=== PATIENT | female | born 1970 | race Caucasian/White ===

== ENCOUNTER 2017-03-06 23:02 | Emergency (ER) | payer BC ==
[2017-03-06] MEDS ORDERED: Adacel (T-DAP) 0.5 ML VIAL ONE (23:09)
[2017-03-06] MEDS ORDERED: Bacitracin Zinc 1 Packet ONE (23:18)
== END 2017-03-06 23:28 | disposition home or self-care (01) ==
LOC: SCSER 23:02
DX: S80.02XA Contusion of left knee, initial encounter (principal); S60.811A Abrasion of right wrist, initial encounter; F41.9 Anxiety disorder, unspecified; Z79.899 Other long term (current) drug therapy; W01.10XA Fall on same level from slipping, tripping and stumbling with subsequent striking against unspecified object, initial encounter
CPT/HCPCS: 90471; 90715

== ENCOUNTER 2019-12-04 10:26 | Outpatient (CLI) | payer BC ==
--- NOTE | 2019-12-04 11:28 | BD ---
EXAM: Bone densitometry using DEXA HISTORY: 49 yo female. Screening for osteoporosis FINDINGS: L1--bone mineral density 1.022 g/sq cm; T score 0.3 ; Z score 1.0 L2--bone mineral density 1.073 g/sq cm; T score 0.4 ; Z score 1.2 L3--bone mineral density 1.142 g/sq cm; T score 0.5 ; Z score 1.3 L4--bone mineral density 1.169 g/sq cm; T score 1.0 ; Z score 1.8 Total L1-L4--bone mineral density 1.106 g/sq cm; T score 0.5 ; Z score 1.3 Left femoral neck--bone mineral density0.697; T score -1.4 ; Z score -0.6 Total proximal left femur--bone mineral density 0.987; T score 0.4 ; Z score 0.9 The 10 year fracture risk for a major osteoporotic fracture is 4.3% and for a hip fracture is 0.3%. IMPRESSION: Osteopenia
--- NOTE | 2019-12-04 14:06 | MMO ---
Bilateral MAMMO Bilat Screen [facility]. CLINICAL HISTORY: Patient is 49 years old and is seen for screening. The patient has the following family history of breast cancer: maternal aunt, at age 83. The patient has no personal history of cancer. VIEWS: The views performed were: bilateral craniocaudal with tomosynthesis; bilateral mediolateral oblique with tomosynthesis; and bilateral exaggerated craniocaudal. FILMS COMPARED: The present examination has been compared to prior imaging studies performed at [facility] on 01/19/2007, 11/10/2009, 11/11/2010 and 11/22/2011. This study has been interpreted with the assistance of computer-aided detection. MAMMOGRAM FINDINGS: There are scattered fibroglandular densities. There are no suspicious masses, suspicious calcifications, or new areas of architectural distortion. IMPRESSION: THERE IS NO MAMMOGRAPHIC EVIDENCE OF MALIGNANCY. A ROUTINE FOLLOW-UP MAMMOGRAM IN 1 YEAR IS RECOMMENDED. THE RESULTS OF THIS EXAM WERE SENT TO THE PATIENT. ACR BI-RADS Category 1 - Negative MAMMOGRAPHY NOTE: 1. A negative mammogram report should not delay a biopsy if a dominant of clinically suspicious mass is present. 2. Approximately 10% to 15% of breast cancers are not detected by mammography. 3. Adenosis and dense breasts may obscure an underlying neoplasm. Reported by: SAMANTHA HONG MD Electonically Signed: [id number]
== END 2019-12-04 10:27 | disposition home or self-care (01) ==
LOC: BICMAMMO 10:26
PROVIDERS: ATTEND Nurse Practitioner Family
DX: Z12.31 Encounter for screening mammogram for malignant neoplasm of breast (principal); Z13.820 Encounter for screening for osteoporosis; M81.0 Age-related osteoporosis without current pathological fracture; M85.852 Other specified disorders of bone density and structure, left thigh; Z79.890 Hormone replacement therapy; Z80.3 Family history of malignant neoplasm of breast
CPT/HCPCS: 77063; 77067; 77080

== ENCOUNTER 2020-10-27 08:17 | Outpatient (CLI) | payer BC | END 2020-10-27 08:18 | disposition home or self-care (01) | LOC: DTY/OP 08:17 | PROVIDERS: ATTEND Surgery | DX: E66.01 Morbid (severe) obesity due to excess calories (principal); Z68.39 Body mass index [BMI] 39.0-39.9, adult | CPT/HCPCS: 97802 ==

== ENCOUNTER 2020-11-05 08:48 | Outpatient (CLI) | payer BC | END 2020-11-05 08:49 | disposition home or self-care (01) | LOC: BICRAD 08:48 | PROVIDERS: ATTEND Family Medicine | DX: J20.9 Acute bronchitis, unspecified (principal) | CPT/HCPCS: 71046 ==

== ENCOUNTER 2020-11-12 11:30 | Inpatient (IN) | payer OTHER ==
[2020-11-12 15:20] VITALS: BMI 38.7
[2020-11-17] MEDS ORDERED: Heparin 5,000 UNITS/ML VIAL ONE (07:30)
[2020-11-17] MEDS ORDERED: Scopolamine 1.5 mg/72 hour Patch ONE (07:44)
[2020-11-17] MEDS ORDERED: Bupivacaine 0.25% HCL 30 ML VIAL ONE (09:12)
[2020-11-17] MEDS ORDERED: Lidocaine 1% w/Epinephrine 1:100K 20 ML VIAL ONE (09:12)
[2020-11-17] MEDS ORDERED: Fentanyl 250 MCG/5 ML VIAL ONE (09:16)
[2020-11-17] MEDS ORDERED: Rocuronium Bromide 10 MG/ML (10ML VIAL) ONE (09:40)
[2020-11-17] MEDS ORDERED: Ondansetron PF 4 MG/2 ML Vial ONE (09:40)
[2020-11-17] MEDS ORDERED: PROPOFOL 200 MG/20 ML VIAL ONE (09:40)
[2020-11-17] MEDS ORDERED: Glycopyrrolate 0.2 MG/ML 5 ML SYRINGE ONE (09:40)
[2020-11-17] MEDS ORDERED: ePHEDrine Sulfate 50 MG/10 ML VIAL ONE (09:40)
[2020-11-17] MEDS ORDERED: Lidocaine 1% PF 5 ML VIAL ONE (09:40)
[2020-11-17] MEDS ORDERED: Ketorolac Tromethamine 30 MG/ML VIAL ONE (09:40)
[2020-11-17] MEDS ORDERED: Dexamethasone 20 MG/5 ML VIAL ONE (09:40)
[2020-11-17] MEDS ORDERED: Promethazine HCl 25 MG/ML VIAL IVPB PRN (10:22)
[2020-11-17] MEDS ORDERED: Meperidine HCl/PF 25 MG/ML VIAL SLOW IVP PRN (10:22)
[2020-11-17] MEDS ORDERED: Ondansetron HCl/PF 4 MG/2 ML Vial IVP PRN (10:22)
[2020-11-17] MEDS ORDERED: Promethazine HCl 25 MG/ML VIAL IM PRN ×3 (10:22→12:20)
[2020-11-17] MEDS ORDERED: Naloxone HCl 0.4 mg/ml Vial IV PRN (11:21)
[2020-11-17] MEDS ORDERED: fentaNYL Citrate/PF 2,000 MCG in Sodium Chloride 0.9% 60 ML IV PRN (11:21)
[2020-11-17] MEDS ORDERED: diphenhydrAMINE 50 MG/ML VIAL IVP PRN ×2 (11:21→12:20)
[2020-11-17] MEDS ORDERED: Zolpidem Tartrate 5 MG TAB PO PRN (11:21)
[2020-11-17] MEDS ORDERED: diphenhydrAMINE 25 MG CAP PO PRN (11:21)
[2020-11-17] MEDS ORDERED: Ondansetron PF 4 MG/2 ML Vial IVP PRN ×2 (11:21→12:20)
[2020-11-17] MEDS ORDERED: diphenhydrAMINE 50 MG/ML VIAL IM PRN (11:21)
[2020-11-17] MEDS ORDERED: Fentanyl 100 MCG/2 ML VIAL ONE (11:27)
[2020-11-17] MEDS ORDERED: Communication Order-Pharmacy FS SCH (11:30)
[2020-11-17] MEDS ORDERED: Hydrocodone-Acetamin 15 ML UDCUP PO PRN (12:20)
[2020-11-17] MEDS ORDERED: Dextrose 5% in Water 1,000 ML IV PRN (12:20)
[2020-11-17] MEDS ORDERED: Dextrose 50% Abboject 50 ML SYRINGE SLOW IVP PRN (12:20)
[2020-11-17] MEDS ORDERED: hydrALAZINE 20 MG/ML VIAL SLOW IVP PRN (12:20)
[2020-11-17] MEDS: D5 1/2 NS w/20 mEq KCL 1,000 ML IV SCH ×2 (20:44→20:45)
[2020-11-18] MEDS: D5 1/2 NS w/20 mEq KCL 1,000 ML IV SCH (02:22)
[2020-11-18 06:00] LABS: #Lymphocytes 2.7 thou/uL (1.20-3.40); #Monocytes 0.8 thou/uL (0.11-0.59); #Neutrophils 6.8 thou/uL (1.40-6.50); %Basophils 0.4 % (0.0-1.0); %Eosinophils 0.3 % (0.0-10.0); %Lymphocytes 26.1 % (21.0-51.0); %Monocytes 7.9 % (0.0-10.0); %Neutrophils 65.4 % (42.0-75.0); Hemoglobin 12.3 g/dL (12.0-16.0); Mean Corpuscular HGB CONC 33.1 g/dL (32.0-36.0); Mean Corpuscular Hemoglobin 28.6 pg (27.0-31.0); Mean Corpuscular Volume 86.5 fL (78.0-98.0); Mean Platelet Volume 10.1 fL (7.4-10.4); Platelet Count 244 thou/uL (130-400); RBC Distribution Width 12.7 % (11.5-14.5); White Blood Cell (WBC) Count 10.4 thou/uL (4.8-10.8)
[2020-11-18 06:18] LABS: Anion Gap 15 mmol/L (10-20); BUN (Urea Nitrogen) 9 mg/dL (9.8-20.1); Calc. Creatinine Clearance 118 mL/min (70-130); Calcium 8.6 mg/dL (7.8-10.44); Carbon Dioxide 23 mmol/L (22-29); Chloride 102 mmol/L (98-107); Glucose 112 mg/dL (70-105); Potassium 3.9 mmol/L (3.5-5.1); Sodium 136 mmol/L (136-145)
[2020-11-18] MEDS ORDERED: Loratadine 10 MG TAB PO SCH (09:00)
[2020-11-18] MEDS ORDERED: Enoxaparin Sodium 40 MG/0.4 ML SYRINGE SC SCH (09:00)
[2020-11-18] MEDS ORDERED: Pantoprazole 40 MG VIAL IVP SCH (09:00)
[2020-11-18 11:34] VITALS: TEMP 98.6
[2020-11-18 11:37] VITALS: BP 110/72
== END 2020-11-18 13:48 | disposition home or self-care (01) | DRG 621 ==
LOC: SURG A 11-17 07:03 → SURG B 11-17 13:59
PROVIDERS: ADMIT Surgery; ATTEND Surgery
PROC: 0DB64Z3 Excision of Stomach, Percutaneous Endoscopic Approach, Vertical (ICD-10-PCS; principal; 2020-11-17)
PROC: 8E0W4CZ Robotic Assisted Procedure of Trunk Region, Percutaneous Endoscopic Approach (ICD-10-PCS; 2020-11-17)
PROC: 0DJ08ZZ Inspection of Upper Intestinal Tract, Via Natural or Artificial Opening Endoscopic (ICD-10-PCS; 2020-11-17)
DX: E66.01 Morbid (severe) obesity due to excess calories (principal); F41.9 Anxiety disorder, unspecified; F90.9 Attention-deficit hyperactivity disorder, unspecified type; Z68.39 Body mass index [BMI] 39.0-39.9, adult; Z79.899 Other long term (current) drug therapy
CPT/HCPCS: 36415; 80048; 85025; 88307; C9113; J0690; J1100; J1644; J1650; J1885; J2405; J2704; J3010; J3480; S0020

== ENCOUNTER 2020-12-04 08:35 | Outpatient (CLI) | payer BC | END 2020-12-04 08:36 | disposition home or self-care (01) | LOC: BICMAMMO 08:35 | PROVIDERS: ATTEND Nurse Practitioner Family | DX: Z12.31 Encounter for screening mammogram for malignant neoplasm of breast (principal); Z80.3 Family history of malignant neoplasm of breast | CPT/HCPCS: 77063; 77067 ==